=== PATIENT | male | born 1985 ===

== ENCOUNTER 2023-05-01 08:52 | Outpatient (CLI) | payer BC, SELFPAY | END 2023-05-01 08:53 | disposition home or self-care (01) | PROVIDERS: Visit Provider Family Medicine | DX: Z00.00 Encounter for general adult medical examination without abnormal findings (principal); Z13.6 Encounter for screening for cardiovascular disorders; Z13.1 Encounter for screening for diabetes mellitus; R35.1 Nocturia | CPT/HCPCS: 80061; 82947; G0103 ==

== ENCOUNTER 2023-05-24 08:35 | Day surgery (SDC) | payer BC, SELFPAY ==
[2023-05-24] VITALS (11 sets, daily range): BP systolic 113–156; BP diastolic 79–94; PULSE 61–80; RESP 12–16; TEMP 36–36.8; O2SAT 93–99; BMI 26.9
--- OUTSIDE RECORDS SUMMARY | 2023-05-24 08:36 | XMS_ITS | Clinical Summary ---
Author Name Unknown Organization [facility] Address [place], [place] [address] Care Team Providers Care Washery Boss Name Role Phone Pcp, No Primary Care Provider Unavailabl e Pcp, No Unavailable Unavailable Allergies No known active allergies Medications No known medications Active Problems No known active problems Immunizations Name Administration Dates Next Due AMB Influenza, IIV4 PF (=>6 mos Flulaval,Fluzone Fluarix)(Flu Clinic Only) 03/04/2020,02/20/2018,03/13/2017 COVID-19 vaccine ([employer] 30mcg/0.3mL) PF, MDV 08/06/2020,07/16/2020 Influenza Virus, Unspecified 01/28/2013 Influenza, IIV3 (Age >=3 years) 01/29/20 18,03/13/2017,01/28/2015,2013 Influenza, IIV4 02/20/2023, 2,02/14/2021,2018,02/26/2015 TD, UNSPECIFIED 04/30/2003,11/28/2002 Tdap 04/30/2012 Family History Medical History Relation Name Comments Seizures Brother 1 half brother Diabetes Brother 2 half brother Diabetes Father Hyperlipidemia Father Hypertension Father Diabetes Half-Brother Diabetes Paternal Grandfather Relation Name Status Comments Brother 1 Alive Brother 2 Alive Father Alive Half-Brother Alive Mother Alive Paternal Grandfather Social History Tobacco Use Types Packs/Day Years Used Date Smoking Tobacco: Former Cigarettes 15 1 05/29/2000 - 03/29/2016 Smokeless Tobacco: Never Tobacco Cessation:Counseling Given: Yes Alcohol Use Standard Drinks/Week Comments Yes 0 (1 standard drink = 0.6 oz pur e alcohol) 1-2 daily, beer Social Connections Answer Date Recorded Frequency of Communication with Friends and Fami ly Not on file 04/30/2021 Financial Resource Strain Answer Date R ecorded Difficulty of Paying Living Expenses Not on file 04/30/2021 Difficulty of Paying Living Expenses Not on file 04/30/2021 Sex and Gender Information Value Date Recorded Sex Assigned at Not on file Gender Identity Not on file Sexual Orientation Not on file Obstetrics History Last Filed Vital Signs Vital Sign Reading Time Taken Comments Blood Pressure 126/74 03/29/2021 10:13 AM [employer] Pulse 70 03/29/2021 10:13 AM [employer] Temperature 36.7 ??C (98.1 ??F) 03/29/2021 10:[address] Respiratory Rate 18 03/29/2021 10:13 AM [employer] Oxygen Saturation 100% 03/29/2021 10:13 AM E[employer] Inhaled Oxygen Concentration - - Weight 72.6 kg (160 lb) 03/29/2021 10:13 AM [employer] Height 172.7 cm (5' 8) 03/29/2021 10:13 AM [employer] Body Mass Index 24.33 03/29/2021 10:13 AM [employer] Plan of Treatment Health Maintenance Due Date Last Done Comments Depression screening for age 12+ 1996 HIV for age 15-65 12/21/1999 Hepatitis C screening for age 18-79 2002 BMI (ht and wt on same day) for age 18+ 03/29/2022 03/29/2021, 04/19/2019 Tetanus booster 04/30/2022 04/30/2012, 04/2003, 11/28/2002 COVID-19 vaccine series ( season) 2022 06/07/2021, 08/06/2020, 07/16/2020 Lipids for age 35-44 03/29/2026 03/29/2021 Tdap Completed 04/30/2012 Influenza for age 9-49 Completed 3, 01/30/2022, 02/14/2021, Additional history exists Pneumococcal series for age 6-64 Aged Out No longer eligible based on patient's age to complete this topic Care Teams Washery Boss Relationship Specialty Start Date End Date Pcp, No . PCP - General 02/26/17 Pcp, No . 02/26/17
--- OUTSIDE RECORDS SUMMARY | 2023-05-24 08:36 | XMS_ITS | Continuity of Care Document ---
Author Name [facility] Organization [facility] Care Team Providers Care Neuropsychologist Name Role Phone [facility] Unavailable Unavailable Problems Combined list of problems from Department of Defense and Veterans Affairs facilities. It does not include entries that were removed or entered in error. Problem Status Onset Date Problem Type Date of Resolution Comments Source Chronic low back pain Active 016 Condition Ambulatory Pharmacy Asthma (SNOMED CT 541269334)2 Active 014 Condition 03/04/2010 - WILLIE ELIAS
ex ercise induced

11/29 - MONCHO GÓMEZ RET S
exercise -induced [place] [facility] Bursitis of knee (SNOMED CT 024221696) Active 014 Condition Ambulatory Pharmacy Bursitis3 Active 010 Condition 03/04/2010 - WILLIE ELIAS
kn Ambulatory Pharmacy Low Back Pain5 Active 010 Condition 03/04/2010 - WILLIE ELIAS
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
[place] Ambulatory Pharmacy Skin Disorder Nos4 Active 009 Condition 06/09/2008 - MONCHO GÓMEZ RET S
skin lesions in R pubic area Ambulatory Pharmacy Memory loss (ICD-9-CM 780.93)1 Active 008 Condition 12/18/2007 - MONCHO GÓMEZ RET S
[place] Ambulatory Pharmacy Pain in limb (ICD-9-CM 729.5)6 Active 008 Condition 12/18/2007 - MONCHO GÓMEZ RET S
bilatera l knee bursitis [place] Ambulatory Pharmacy Foreign Body Accidentally Entering [facility] (ICD-9-CM E914.) Active 008 Condition Ambulatory Pharmacy Refractive Errors (ICD-9-CM 367.9) Active 007 Condition Ambulatory Pharmacy Personal History of Tobacco Use (ICD-9-CM V15.82) Active 007 Condition Ambulatory Pharmacy Asthma Active Condition Mar 04 10 Entered By: WILLIE ELIAS Comment: exercise induced [facility] Asthma (SNOMED CT 009316165) Active Condition [facility] Asthma * (ICD-9-CM 493.90) Active Condition Dec 18, 2007 Entered By: MONCHO GÓMEZ RET Comment: exercise-induc ed [facility] Bursitis Active Condition Mar 04 10 Entered By: WILLIE ELIAS Comment: knee [facility] Bursitis of knee (SNOMED CT 579208567) Active Condition [facility] Chronic low back pain Active Condition [facility] Dry Eye Syndromes Active Condition [facility] Foreign Body Accidentally Entering [facility] (ICD-9-CM E914.) Active Condition [facility] 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) Active Condition Dec 18, 2007 Entered By: MONCHO GÓMEZ RET Comment: [facility] Low Back Pain Active Condition Feb Entered By: WILLIE ELIAS Comment: since [facility] Low Back Pain * (ICD-9-CM 724.2) Active Condition [facility] Memory loss (ICD-9-CM 780.93) Active Condition Dec 17 08 Entered By: MONCHO GÓMEZ RET Comment: intermittent [facility] Other and unspecified alcohol dependence, continuous drinking behavior (ICD-9-CM Active Condition [facility] Pain in limb (ICD-9-CM 729.5) Active Condition Dec 17 8 Entered By: MONCHO GÓMEZ RET Comment: bilateral knee bursitis [facility] Personal History of Tobacco Use (ICD-9-CM V15.82) Active Condition [facility] Refractive Errors (ICD-9-CM 367.9) Active Condition [facility] Skin Disorder Nos Active Condition 2008 Entered By: MONCHO GÓMEZ RET Comment: skin lesions in R pubic area [facility] Sprain (ICD-9-CM 848.9) Active Condition [facility] Tinnitus Active Condition [facility] Tinnitus * (ICD-9-CM 388.30) Active Condition Dec 17 Entered By: MONCHO GÓMEZ RET Comment: intermittent [place] [facility] Tobacco Use * (ICD-9-CM 305.1) Active Condition [facility] Warts Active Condition Jun 09 Entered By: MONCHO GÓMEZ RET Comment: left fifth finger, DIP area [facility] Lyme disease Inactive Condition 05/18/2020 [facility] Seborrheic keratosis of scalp Inactive Condition 12/04/2017 Dec 04, 018 Entered By: DIXON BRIAN Comment: s/p biopsy 02/2017 [facility] Tobacco User (SCT [id number]) Inactive Condition 06/14/2021 Jan 07, 2019 Entered By: DIXON BRIAN Comment: Smokes 1 pack cigarettes per month [facility] refractive error Active Condition [facility] new patient ophthalmological exam Inactive Condition [facility] visit for: ears / hearing exam Active Condition [facility] Medications Combined list of outpatient medications from Department of Defense and Veterans Affairs facilities.Medications provided include 1) outpatient medications from the last 15 months, and 2) patient-reported medications. Medication Details Route Status Patient Instructions Prescription Expires Prescription Number Last Dispense Date Ordering Provider Order Date Source ACETAMINOPH EN 500MG TAB TAKE ONE TABLET BY MOUTH Q6H PRN ORALLY ACTIVE [facility]AX [facility] Allergies, Adverse Reactions, Alerts Combined list of allergies from Department of Defense and Veterans Affairs facilities. It does not include entries that were removed or entered in error. Substance Category Reaction Severity Reaction type Status Date Reported Comments Source No Known Allergies Drug allergy (disorder) active 09/26/2010 [facility] Immunizations Combined list of available immunizations from the Department of Defense and Veterans Affairs facilities. Immunization Series Date Given Administered By Site Reaction Lot Number CVX Code Drug Front Desk Admin Status Comments Source COVID-19 (PFIZER), MRNA, LNP-S, PF, 30 MCG/0.3 ML DOSE 3 2021 208 complet ed [facility] COVID Vaccine Pfizer 2021 208 complet ed COVID Vaccine Pfizer 06/07/21 Recorded Ambulat ory Pharmac y INFLUENZA, UNSPECIFIED FORMULATION 2020 88 complet ed [facility] influenza virus vaccine, unspecified 2020 88 complet ed influenza virus vaccine, unspecifi ed 02/14/21 Recorded Ambulat ory Pharmac y COVID-19 (PFIZER), MRNA, LNP-S, PF, 30 MCG/0.3 ML DOSE 2 2020 208 complet ed PFR; [id number]; 1 [facility] COVID Vaccine Pfizer 2020 208 complet ed Result Comment: PFR; [id number]; 1 Ambulat ory Pharmac y COVID-19 (PFIZER), MRNA, LNP-S, PF, 30 MCG/0.3 ML DOSE 1 2020 208 complet ed PFR; [id number]; 1 [facility] COVID Vaccine Pfizer 2020 208 complet ed Result Comment: PFR; [id number]; 1 Ambulat ory Pharmac y INFLUENZA, SEASONAL, INJECTABLE 2017 141 complet ed [facility] influenza, seasonal, injectable 2017 141 complet ed influenza , seasonal, injectabl e 01/28/18 Recorded Ambulat ory Pharmac y INFLUENZA, SEASONAL, INJECTABLE 2016 141 complet ed [facility] influenza, seasonal, injectable 2016 141 complet ed influenza , seasonal, injectabl e 03/13/17 Recorded Ambulat ory Pharmac y INFLUENZA, SEASONAL, INJECTABLE 2014 141 complet ed [facility] influenza, seasonal, injectable 2014 141 complet ed influenza , seasonal, injectabl e 01/28/15 Recorded Ambulat ory Pharmac y INFLUENZA, SEASONAL, INJECTABLE 2013 141 complet ed [facility] influenza, seasonal, injectable 2013 141 complet ed influenza , seasonal, injectabl e 01/28/14 Recorded Ambulat ory Pharmac y INFLUENZA, UNSPECIFIED FORMULATION 2012 88 complet ed [facility] influenza virus vaccine, unspecified 2012 88 complet ed influenza virus vaccine, unspecifi ed 01/28/13 Recorded Ambulat ory Pharmac y TDAP 2012 115 complet ed [facility] tetanus, diphtheria, acellular pertu is 2012 115 complet ed tetanus, diphtheri a, acellular pertussis 04/30/12 Recorded Ambulat ory Pharmac y TD(ADULT) UNSPECIFIED FORMULATION 2003 139 complet ed [facility] Td(adult) unspecified formulation 2003 139 complet ed Td(adult) unspecifi ed formulati on 04/30/03 Recorded Ambulat ory Pharmac y TD(ADULT) UNSPECIFIED FORMULATION 2002 139 complet ed [facility] Td(adult) unspecified formulation 2002 139 complet ed Td(adult) unspecifi ed formulati on 11/28/02 Recorded Ambulat ory Pharmac y Results Combined list of recent chemistry, hematology and other laboratory results from Department of Defense and Veterans Affairs, ranging from 15 months to all on record, depending upon the facility. Order Name Results Value Reference Range Date Interpretation Specimen Comments Source LIPID PANEL,NON -FASTING CHOLESTEROL [MASS/VOLUM E] IN SERUM OR PLASMA 216 <199 - 199 06/14 H Specimen Type: PLASMA No comment entered. Ordering Provider: ROYAL HEREDIA Report Released Date/Time: May 18, 2020 09:07 AM Reporting Lab: [facility] [phone] Performing Lab: [facility] [address] [place] [facility] LIPID PANEL,NON -FASTING CHOLESTEROL IN HDL [MASS/VOLUM E] IN SERUM OR PLASMA 79 40 06/14 Specimen Type: PLASMA No comment entered. Ordering Provider: ROYAL HEREDIA Report Released Date/Time: May 18, 2020 09:07 AM Reporting Lab: [facility] [address] Performing Lab: [facility] [address] [place] [facility] LIPID PANEL,NON -FASTING CHOLESTEROL IN LDL [MASS/VOLUM E] IN SERUM OR PLASMA BY CALCULATION 116 <99 - 99 06/14 H Specimen Type: PLASMA No comment entered. Ordering Provider: ROYAL HEREIDA Report Released Date/Time: May 18, 2020 09:07 AM Reporting Lab: [facility] [address] Performing Lab: [facility] [address] [place] [facility] LIPID PANEL,NON -FASTING CHOLESTEROL IN VLDL [MASS/VOLUM E] IN SERUM OR PLASMA BY CALCULATION 21 <29 - 29 06/14 Specimen Type: PLASMA No comment entered. Ordering Provider: ROYAL HEREDIA Report Released Date/Time: May 18, 2020 09:07 AM Reporting Lab: [facility] [address] Performing Lab: [facility] [address] [place] [facility] LIPID PANEL,NON -FASTING CHOLESTEROL NON HDL [MASS/VOLUM E] IN SERUM OR PLASMA 137 <129 - 129 06/14 H Specimen Type: PLASMA No comment entered. Ordering Provider: ROYAL HEREDIA Report Released Date/Time: May 18, 2020 09:07 AM Reporting Lab: [facility] [address] Performing Lab: [facility] [address] [place] [facility] LIPID PANEL,NON -FASTING TRIGLYCERID E [MASS/VOLUM E] IN SERUM OR PLASMA 106 <149 - 149 06/14 Specimen Type: PLASMA No comment entered. Ordering Provider: ROYAL HEREDIA Report Released Date/Time: May 18, 2020 09:07 AM Reporting Lab: [facility] [address] Performing Lab: [facility] [address] [place] [facility] BASIC METABOLIC PANEL+MG CREATININE [MASS/VOLUM E] IN SERUM OR PLASMA 0.9 0.7 - 1.2 06/14 Specimen Type: PLASMA No comment entered. Ordering Provider: ROYAL HEREDIA Report Released Date/Time: May 18, 2020 09:07 AM Reporting Lab: [facility] [address] Performing Lab: [facility] [address] [place] [facility] BASIC METABOLIC PANEL+MG UREA NITROGEN [MASS/VOLUM E] IN SERUM OR PLASMA 9 8 - 26 06/14 Specimen Type: PLASMA No comment entered. Ordering Provider: ROYAL HERDEIA Report Released Date/Time: May 18, 2020 09:07 AM Reporting Lab: [facility] [address] Performing Lab: [facility] [address] [place] [facility] BASIC METABOLIC PANEL+MG GLUCOSE [MASS/VOLUM E] IN SERUM OR PLASMA 85 74 - 100 06/14 Specimen Type: PLASMA No comment entered. Ordering Provider: ROYAL HEREDIA Report Released Date/Time: May 18, 2020 09:07 AM Reporting Lab: [facility] [address] Performing Lab: [facility] [address] [place] [facility] BASIC METABOLIC PANEL+MG SODIUM [MOLES/VOLU ME] IN SERUM OR PLASMA 141 136 - 145 06/14 Specimen Type: PLASMA No comment entered. Ordering Provider: ROYAL HEREDIA Report Released Date/Time: May 18, 2020 09:07 AM Reporting Lab: [facility] [address] Performing Lab: [facility] [address] [place] [facility] BASIC METABOLIC PANEL+MG POTASSIUM [MOLES/VOLU ME] IN SERUM OR PLASMA 3.6 3.5 - 5.1 06/14 Specimen Type: PLASMA No comment entered. Ordering Provider: ROYAL HEREDIA Report Released Date/Time: May 18, 2020 09:07 AM Reporting Lab: [facility] [address] Performing Lab: [facility] [address] [place] [facility] BASIC METABOLIC PANEL+MG CHLORIDE [MOLES/VOLU ME] IN SERUM OR PLASMA 107 98 - 107 06/14 Specimen Type: PLASMA No comment entered. Ordering Provider: ROYAL HEREDIA Report Released Date/Time: May 18, 2020 09:07 AM Reporting Lab: [facility] [phone] Performing Lab: [facility] [address] [place] [facility] BASIC METABOLIC PANEL+MG CARBON DIOXIDE, TOTAL [MOLES/VOLU ME] IN SERUM OR PLASMA 27 - 29 06/14 Specimen Type: PLASMA No comment entered. Ordering Provider: ROYAL HEREDIA Report Released Date/Time: May 18, 2020 09:07 AM Reporting Lab: [facility] [address] Performing Lab: [facility] [address] [place] [facility] BASIC METABOLIC PANEL+MG CALCIUM [MASS/VOLUM E] IN SERUM OR PLASMA 9.8 8.4 - 10.2 06/14 Specimen Type: PLASMA No comment entered. Ordering Provider: ROYAL HEREDIA Report Released Date/Time: May 18, 2020 09:07 AM Reporting Lab: [facility] [phone] Performing Lab: [facility] [address] [place] [facility] BASIC METABOLIC PANEL+MG MAGNESIUM [MASS/VOLUM E] IN SERUM OR PLASMA 2.0 1.6 - 2.6 06/14 Specimen Type: PLASMA No comment entered. Ordering Provider: ROYAL HEREDIA Report Released Date/Time: May 18, 2020 09:07 AM Reporting Lab: [facility] [address] Performing Lab: [facility] [address] [place] [facility] BASIC METABOLIC PANEL+MG ANION GAP IN SERUM OR PLASMA 7 5 - 15 06/14 Specimen Type: PLASMA No comment entered. Ordering Provider: ROYAL HEREDIA Report Released Date/Time: May 18, 2020 09:07 AM Reporting Lab: [facility] [address] Performing Lab: [facility] [address] [place] [facility] BASIC METABOLIC PANEL+MG GLOMERULAR FILTRATION RATE/1.73 SQ M.PREDICTED [VOLUME RATE/AREA] IN SERUM, PLASMA OR BLOOD BY CREATININE- BASED FORMULA (CKD-EPI) 95 60 06/14 Specimen Type: PLASMA No comment entered. Ordering Provider: ROYAL HEREDIA Report Released Date/Time: May 18, 2020 09:07 AM Reporting Lab: [facility] [address] Performing Lab: [facility] [address] [facility] Vital Signs Combined list of inpatient and outpatient Vital Signs from Department of Defense and Veterans Affairs, ranging from 12 months to all on record, depending upon the facility. Vital Sign Value Date Comments Source Systolic Blood Pressure 129mm[Hg] 06/14/2021 19:26:58 Ambulatory Pharmacy Diastolic Blood Pressure 76mm[Hg] 06/14/2021 19:26:58 Ambulatory Pharmacy Systolic Blood Pressure 126mm[Hg] 12/04/2017 13:56:04 Ambulatory Pharmacy Diastolic Blood Pressure 78mm[Hg] 12/04/2017 13:56:04 Ambulatory Pharmacy Systolic Blood Pressure 124mm[Hg] 04/19/2017 20:14:01 Ambulatory Pharmacy Diastolic Blood Pressure 74mm[Hg] 04/19/2017 20:14:01 Ambulatory Pharmacy Systolic Blood Pressure 137mm[Hg] 03/13/2017 14:51:21 Ambulatory Pharmacy Diastolic Blood Pressure 71mm[Hg] 03/13/2017 14:51:21 Ambulatory Pharmacy Systolic Blood Pressure 124mm[Hg] 10/11/2014 20:01:03 Ambulatory Pharmacy Diastolic Blood Pressure 79mm[Hg] 10/11/2014 20:01:03 Ambulatory Pharmacy Systolic Blood Pressure 138mm[Hg] 06/01/2015 17:04:00 Ambulatory Pharmacy Diastolic Blood Pressure 84mm[Hg] 06/01/2015 17:04:00 Ambulatory Pharmacy Systolic Blood Pressure 127mm[Hg] 05/22/2018 20:46:44 Ambulatory Pharmacy Diastolic Blood Pressure 84mm[Hg] 05/22/2018 20:46:44 Ambulatory Pharmacy Systolic Blood Pressure 124mm[Hg] 10/11/2014 20:01:53 Ambulatory Pharmacy Diastolic Blood Pressure 69mm[Hg] 10/11/2014 20:01:53 Ambulatory Pharmacy Systolic Blood Pressure 119mm[Hg] 10/10/2016 15:17:25 Ambulatory Pharmacy Diastolic Blood Pressure 72mm[Hg] 10/10/2016 15:17:25 Ambulatory Pharmacy Systolic Blood Pressure 113mm[Hg] 01/07/2019 13:22:21 Ambulatory Pharmacy Diastolic Blood Pressure 74mm[Hg] 01/07/2019 13:22:21 Ambulatory Pharmacy Encounters Combined list of: 1) Encounters from Department of Veterans Affairs facilities [facility]. 2) Encounters from the Department of [facility] facilities going back up to 280 months. Location Location Details Encounter Type Encounter Number Reason For Visit Attending Provider ADM Date DC Date Status Disposition Source [facility] [place](Au diology Cln) OUTPATIENT [id number] DEVEN BENOIT 07/31 Released w/o Limitations [facility] [place]( Audiolo gy Cln) [facility] [place](Op tometry Cln) OUTPATIENT [id number] routine eye exam JOANNE JOHNSON 08/02 Released w/o Limitations [facility] [place]( Optomet ry Cln) [facility] Outpatient Encounter [id number] 03/14 [facility] Procedures Combined list of: 1) Procedures from Department of Veterans Affairs facilities going back up to thelast 18 months, not all [place] non-surgical procedures are included; 2) All procedures from the Department of [facility] facilities. Procedure Procedure Type Code Date Perfomer Comments Sourc e No data available for this section Ambulato ry Pharmacy INJECTION, PENICILLIN G BENZATHINE AND PENICILLIN G PROCAINE, UP TO 1,200,000 UNITS DoD BUPRENORPHINE IMPLANT, 74.2 MG DoD FITTING OF SPECTACLES, EXCEPT FOR APHAKIA; MONOFOCAL DoD ELECTROCARDIOGRAM, ROUTINE ECG WITH AT LEAST 12 LEADS; TRACING ONLY, WITHOUT INTERPRETATION AND REPORT DoD NONINVASIVE EAR OR PULSE OXIMETRY FOR OXYGEN SATURATION; SINGLE DETERMINATION DoD THERAPEUTIC PROCEDURE, 1 OR MORE AREAS, EACH 15 MINUTES; THERAPEUTIC EXERCISES TO DEVELOP STRENGTH AND ENDURANCE, RANGE OF MOTION AND FLEXIBILITY DoD THERAPEUTIC PROCEDURE, 1 OR MORE AREAS, EACH 15 MINUTES; THERAPEUTIC EXERCISES TO DEVELOP STRENGTH AND ENDURANCE, RANGE OF MOTION AND FLEXIBILITY DoD THERAPEUTIC PROCEDURE, 1 OR MORE AREAS, EACH 15 MINUTES; THERAPEUTIC EXERCISES TO DEVELOP STRENGTH AND ENDURANCE, RANGE OF MOTION AND FLEXIBILITY DoD INFUSION, NORMAL SALINE SOLUTION , 1000 CC DoD PURE TONE AUDIOMETRY (THRESHOLD); AIR ONLY DoD [employer] [facility] Fitting Monofocal Except For Aphakia [facility] Services Fitting Monofocal Except For Aphakia [id number] JOANNE JOHNSON [facility] Determination Of Refractive State Determination Of Refractive State [id number] JOANNE JOHNSON [facility] Ophthalmological New Patient Start Comprehensive Care Ophthalmological New Patient Start Comprehensive Care [id number] JOANNE JOHNSON [facility] Social History Combined list of available smoking, tobacco, and other social history from Department of Defense and Veterans Affairs facilities. Social History Type Response Date Comment Source Tobacco smoking status [facility]-TOBACCO QUIT < 1 YEAR 06/14/2021 [facility] History of tobacco use [place]-TO[place]AC[place] FORMER USER 06/14/2021 [facility] History of tobacco use [place]-TOBACCO USE TEACHING FELLOW NO 11/19/2018 [facility] History of tobacco use FORMER TOBACCO USE >1Y <7Y 11/08/2017 [facility] History of tobacco use FORMER TOBACCO USE >1Y <7Y 10/10/2016 [facility] History of tobacco use CURRENT TOBACCO USER 06/01/2015 [facility] History of tobacco use FORMER TOBACCO USE >1Y <7Y 05/29/2014 [facility] History of tobacco use FORMER TOBACCO USE >1Y <7Y 07/22/2013 [facility] History of tobacco use TOBACCO SCREEN COMPLETED 07/05/2012 [facility] History of tobacco use TOBACCO SCREEN COMPLETED 03/29/2011 No, not willing to quit now [facility] History of tobacco use TOBACCO SCREEN COMPLETED 03/04/2010 [facility] History of tobacco use TOBACCO SCREEN COMPLETED 02/03/2009 1 pkg daily for 5 years, quit 2 months ago [facility] History of tobacco use CURRENT TOBACCO USER 12/18/2007 [facility] History of tobacco use CURRENT TOBACCO USER 12/18/2007 [facility] History of tobacco use CURRENT TOBACCO USER 01/25/2007 [facility] This section is an empty social history section. DoD Assessment and Plan Combined list of future care activities from Department of Defense and Veterans Affairs facilities (e.g., assessment and plan notes, appointments, orders, and referrals). Additional future care activities may be listed in the Plan of Care section. Result Assessment and Plan Date Source Assessment and Plan No data available for this section 05/24/2023 Ambulatory Pharmacy Functional Status Combined list of recent functional and cognitive assessments recorded at Department of Defense and Veterans Affairs (VA).[facility] Functional [place] Measurement (FIM) Scale: 1 = Total Assistance (Subject = 0% +), 2 = Maximal Assistance (Subject = 25% +), 3 = Moderate Assistance (Subject = 50% +), 4 = Minimal Assistance (Subject = 75% +), 5 = Supervision, 6 = Modified [place] (Device), 7 = Complete [place] (Timely, Safely). Assessment Date/Time Source Assessment Type Assessment Skill Assessment Score Assessment Details No data available for this section
[2023-05-24] MEDS: LACTATED RINGERS 1000 ML 1,000 ML 100 ML IV (09:20)
--- NOTE | 2023-05-24 10:21 | P.GSOP_ITS ---
Operative Note Date of procedure: 05/24/23 Pre-op diagnosis: Bilateral inguinal hernias Post-op diagnosis: Same Type of Procedure: Laparoscopic bilateral inguinal hernia repair with mesh - preperitoneal converted to transabdominal approach Indications: The patient is a 37-year-old male who has bilateral inguinal hernias. He is having increased discomfort on the left in particular with activity as well as coughing. He was found to have a right-sided hernia on exam. After discussion of options, he elected to proceed with repair. Procedure Description: After discussing the risks and benefits of the procedure, the patient signed informed consent.? The operative site was marked and the patient was brought to the operating room and placed on the operating table in supine position.? Care was taken to pad the patient's pressure points.?? The patient was then intubated by anesthesia.?? The operative site was then prepped and draped in the usual sterile fashion.? A time-out was then performed. A curvilinear incision was made below the umbilicus. Dissection was carried down to subcutaneous tissue until the anterior rectus fascia was encountered. This was incised off the midline to the right. The rectus muscle fibers were then retracted exposing the posterior fascia. A port with a dissecting balloon was then introduced into the pre-preperitoneal space. This was inflated under direct vision. The balloon was deflated, removed, and a 10 mm working port was placed. The space was insufflated and a 10 mm 30-degree scope was then advanced into the space. Two 5 mm ports were placed in the midline under direct vision. Dissection began on the right side. Rashida's ligament and the pubic bone were exposed medially. Following this, dissection was carried out laterally. A direct defect was noted. I reduced this. Attention was then turned to the cord structures. An indirect hernia was noted here. The sac was dissected free from the cord structures using a combination of sharp and blunt dissection. There was a large cord lipoma attached to this. This was completely reduced. Once this was reduced it was noted to be devascularized. This was removed from the abdomen. Attention was then turned to the left. Rashida's ligament was similarly identified and dissection was taken laterally. There was a moderate- sized direct hernia which was reduced. There was preperitoneal fat which had herniated through the internal ring on the left. This was reduced. There was n o hernia sac, however the peritoneum was dissected off of the cord structures. At this point, the space was examined to ensure adequate dissection. However the preperitoneal space had collapsed. It was determined that this was secondary to a small tear in the peritoneum which had caused pneumoperitoneum. I was unable to really insufflate the space in order to evacuate the pneumoperitoneum through the peritoneal tear, therefore I removed the umbilical port and incised the posterior fashion peritoneum here to desufflated the abdomen. This was closed with Vicryl suture and the port placed again in the preperitoneal space. Again very quickly pneumoperitoneum collected and obscured the preperitoneal space to the point where it made it difficult to visualize for appropriate mesh placement. I ensured the patient was completely relaxed and also attempted to vent the peritoneum while continuing in the preperitoneal space. The bladder did not appear to be excessively full. However, the per itoneal space would quickly collapse before I could continue working. Therefore, I elected to complete the procedure via a transabdominal approach. I reopened the posterior fascial opening that I had made to evacuate the pneumoperitoneum and placed a port through. The abdomen was then insufflated. There was only a small tear in the right side of the peritoneum measuring less than a cm. I advanced the midline ports through the peritoneum. I did need to place 2 additionally 5 mm ports in the lateral abdomen to be able to position the mesh and close the peritoneum. I began on the right. I incised the peritoneum just superior to the area of the hernia on and opened the peritoneal flap. I was then able to visualize that the dissection was sufficient for mesh placement. A piece of large Bard 3DMax mesh was then advanced into the abdomen. This was positioned in place with a marker pointed medially. This was then secured in place with a Tacker at Rashida's ligament, anteriorly on the abdominal wall, as well as lateral, to avoid the epigastric vessels. Once this was done, the peritoneal opening was then closed V lock suture in a running fashion - this came together without tension and without rolling the inferior aspect of the mesh. Attention was then turned to the left side. Similarly, I opened the peritoneum with cautery, creating a flap. A piece of bard 3D max mesh was placed again, with the marker pointed medially, overlapping the mesh on the right slightly. I then secured the mesh with a tack at rashida's as well as superomedially and laterally. The peritoneal flap was closed with a running V-lock suture with care to ensure the mesh laid flat before closure. Once this was completed the abdomen was desufflated and the ports removed. Just prior to removal of the low midline port, it was pulled into the preperitoneal space and 10 mL of 0.5% Marcaine were instilled into the preperitoneal space through a port. The fascia from the infraumbilical port was closed with 0 Vicryl. The skin incisions were closed with absorbable subcuticular suture. Sterile dressings were then applied. The scrotum was examined to ensure that both testicles were down. Instrument sponge and needle counts were correct at the end of the case. ? The patient was then woken and transported to the recovery area in stable condition. ? The patient tolerated the procedure well. Findings: Right pantaloon hernia with a large cord lipoma Left direct inguinal hernia with a moderate cord lipoma noted. Anesthesia: GETA Surgeon: Eulalia Rapp MD Estimated blood loss (mL): 15 Condition: stable Disposition: PACU
[2023-05-24] MEDS: CEFAZOLIN 2 GM INJ IVP (10:26)
--- NOTE | 2023-05-24 10:43 | SUR.PREOP ---
Unable to preform the scheduled surgery due to confusion over anticoag therapy. Pt rescheduled for tomorrow with Dr. Gregg
--- NOTE | 2023-05-24 10:57 | W.ANESCHARGE ---
Anesthesia Charges Start Date/Time Anesthesia Start Date: 05/24/23 Anesthesia Start Time: 10:12 Stop Date/Time Anesthesia Stop Date: 05/24/23 Anesthesia Stop Time: 13:38
[2023-05-24] MEDS: BUPIVACAINE 0.25% 30 ML INJECTION (11:07)
[2023-05-24] MEDS: fentaNYL 100 MCG/2 ML inj 50 MCG IVP ×2 (13:41→13:47)
[2023-05-24] MEDS: MEPERIDINE 25 MG/ML INJ 12.5 MG IVP (13:41)
--- NOTE | 2023-05-24 14:05 | W.ANESCHARGE ---
Anesthesia Charges Start Date/Time Anesthesia Start Date: 05/24/23 Anesthesia Start Time: 10:12 Stop Date/Time Anesthesia Stop Date: 05/24/23 Anesthesia Stop Time: 13:38
[2023-05-24] MEDS: HYDROCODONE-ACETAMIN 5-325 MG 1 TAB PO (14:21)
== END 2023-05-24 15:15 | disposition home or self-care (01) ==
PROVIDERS: PCP Family Medicine; Visit Provider Surgery
PROC: (CPT 49650; principal; 2023-05-24 10:15)
DX: K40.20 Bilateral inguinal hernia, without obstruction or gangrene, not specified as recurrent (principal)
CPT/HCPCS: 49650; 00860; A9270; C1781; J0665; J0690; J1100; J1170; J2175; J2250; J2405; J2704; J2710; J3010; J7120

== ENCOUNTER 2023-11-19 12:37 | Outpatient (CLI) | payer BC, SELFPAY ==
--- OUTSIDE RECORDS SUMMARY | 2023-11-19 12:40 | XMS_ITS | Clinical Summary ---
Author Organization [facility] Address [place], [place] [address] Care Team Providers Care Microbiology Lab Manager Name Role Phone Pcp, No Primary Care Provider Unavailabl e Pcp, No Unavailable Unavailable Allergies No known active allergies Medications No known medications Active Problems No known active problems Immunizations Name Administration Dates Next Due AMB Influenza, IIV4 PF (=>6 mos Flulaval,Fluzone Fluarix)(Flu Clinic Only) 03/04/2020,02/20/2018,03/13/2017 COVID-19 vaccine (ZapHour NTKustom Codes 30mcg/0.3mL) PF, MDV 08/06/2020,07/16/2020 Influenza Virus, Unspecified [...] Years Used Date Smoking Tobacco: Former Cigarettes 1 05/29/2000 - 03/29/2016 Smokeless Tobacco: Never [...] Comments Blood Pressure 126/74 03/29/2021 10:[address] Pulse 70 03/29/2021 10:[address] Temperature 36.7 ??C (98.1 ??F) 03/29/2021 10:[address] Respiratory Rate 18 03/29/2021 10:[address] Oxygen Saturation 100% 03/29/2021 10:[address] Inhaled Oxygen Concentration - - Weight 72.6 kg (160 lb) 03/29/2021 10:[address] Height 172.7 cm (5' 8) 03/29/2021 10:[address] Body Mass Index 24.33 03/29/2021 10:[address] Plan of Treatment Health Maintenance Due Date Last Done Comments Depression screening for age 12+ 1996 HIV for age 15-65 12/21/1999 Hepatitis C screening for age 18-79 2002 BMI (ht and wt on same day) for age 18+ 03/29/2022 03/29/2021, 04/19/2019 Tetanus booster 04/30/2022 04/30/2012, 04/2003, 11/28/2002 COVID-19 vaccine series ( season) 2022 06/07/2021, 08/06/2020, 07/16/2020 Influenza for age 9-49 12/30/2023 3, 01/30/2022, 02/14/2021, Additional history exists Lipids for age 35-44 03/29/2026 03/29/2021 Tdap Completed 04/30/2012 Pneumococcal series for age 6-64 Aged Out No longer eligible based on patient's age to complete this topic Procedures Procedure Name Priority Date/Time Associated Diagnosis Comments LIPID PANEL W REFLEX MEASURED LDL Routine 03/29/2021 10:[address] Lipid screening from Last 3 Months or Most Recently Relevant to Health Maintenance Results * (ABNORMAL) LIPID PANEL W REFLEX MEASURED LDL (03/29/2021 10:[address]) CHOLESTEROL,TOTAL 273(H) 100 - 199 mg/dL 03/29/2021 6:[address] [facility] [employer] [facility] TRIGLYCERIDES 52 <150 mg/dL 03/29/2021 6:[address] [facility] HDL CHOLESTEROL 103 >40 mg/dL 6:[address] [facility] NON-HDL CHOLESTEROL 170(H) <145 mg/dl 03/29/2021 6:[address] [facility] CHOL/HDL RATIO 2.65 <4.50 03/29/2021 6:[address] [facility] LDL CHOLESTEROL 160(H) <=130 mg/dL 03/29/2021 6:[address] [facility] VLDL CHOLESTEROL 10 <=30 mg/dL 03/29/2021 6:[address] [facility] PROVIDER ORDERED STATUS RANDOM 03/29/2021 6:[address] [facility] Blood BLOOD SPECIMEN / Unknown Venipuncture / Unknown 03/29/2021 10:[address] 03/29/2021 10:[address] Jose Venegas MD [facility] [address] [place] [address], [place] from Last 3 Months or Most Recently Relevant to Health Maintenance Care Teams Microbiology Lab Manager Relationship Specialty Start Date End Date Pcp, No . PCP - General 02/26/17 Pcp, No . 02/26/17
--- OUTSIDE RECORDS SUMMARY | 2023-11-19 12:40 | XMS_ITS | Continuity of Care Document ---
Author Name [facility] Organization [facility] Care Team Providers Care Molded Goods Spot Picker Name Role Phone [facility] Unavailable Unavailable Problems Combined list of problems from Department of Defense and Veterans Affairs facilities. It does not include entries that were removed or entered in error. Problem Status Onset Date Problem Type Date of Resolution Comments Source Chronic low back pain Active 016 Condition Ambulatory Pharmacy Asthma (SNOMED CT [id number])2 Active 014 Condition 03/04/2010 - WILLIE ELIAS
ex ercise induced

11/29 - MONCHO GÓMEZ RET S
exercise -induced [place] Ambulatory Pharmacy Bursitis of knee (SNOMED CT [id number]) Active 014 Condition Ambulatory Pharmacy Bursitis3 Active 010 Condition 03/04/2010 - WILLIE ELIAS
[place] Ambulatory Pharmacy Low Back Pain5 Active 010 Condition 03/04/2010 - WILLIE ELIAS
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
[place] Ambulatory Pharmacy Skin Disorder Nos4 Active 009 Condition 06/09/2008 - MONCHO GÓMEZ RET S
skin lesions in R pubic area Ambulatory Pharmacy Memory loss (ICD-9-CM 780.93)1 Active 008 Condition 12/18/2007 - [facility]MEZ [facility] S
[place] Ambulatory Pharmacy Pain in limb (ICD-9-CM 729.5)6 Active 008 Condition 12/18/2007 - MONCHO GÓMEZ RET S
bilatera l knee bursitis [place] Ambulatory Pharmacy Foreign Body Accidentally Entering [facility] [employer] (ICD-9-CM E914.) Active 008 Condition Ambulatory Pharmacy Refractive Errors (ICD-9-CM 367.9) Active 007 Condition Ambulatory Pharmacy Personal History of Tobacco Use (ICD-9-CM V15.82) Active 007 Condition Ambulatory Pharmacy Asthma Active Condition Mar 04 10 Entered By: WILLIE ELIAS Comment: exercise induced [facility] Asthma (SNOMED CT 508397929) Active Condition [facility] Asthma * (ICD-9-CM 493.90) Active Condition Dec 18, 2007 Entered By: MONCHO GÓMEZ RET Comment: exercise-induc ed [facility] Bursitis Active Condition Mar 04 10 Entered By: WILLIE ELIAS Comment: knee [facility] Bursitis of knee (SNOMED CT [id number]) Active Condition [facility] Chronic low back pain Active Condition [facility] Contact with and (Suspected) Exposure to Air Pollution Active Condition [facility] Contact with and (Suspected) Exposure to Asbestos Active Condition [facility] Contact with and (suspected) exposure to other hazardous substances Active Condition [facility] Contact with and (Suspected) Exposure to other Hazardous, Chiefly Nonmedicinal, Active Condition [facility] Contact with and (Suspected) Exposure to other Hazards in the Physical Environme Active Condition [facility] Dry Eye Syndromes Active Condition [facility] Foreign Body Accidentally Entering [facility] [employer] (ICD-9-CM E914.) Active Condition [facility] 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 Pain in limb (ICD-9-CM 729.5) Active Condition Dec 17 8 Entered By: MONCHO GÓMEZ RET Comment: bilateral knee bursitis [facility] Personal History of Tobacco Use (ICD-9-CM V15.82) Active Condition [facility] Refractive Errors (ICD-9-CM 367.9) Active Condition [facility] Skin Disorder Nos Active Condition 2008 Entered By: MONCHO GÓMEZ RET Comment: skin lesions in R pubic area [facility] Sprain (ICD-9-CM 848.9) Active Condition [facility] Tinnitus Active Condition [facility] Tinnitus * (ICD-9-CM 388.30) Active Condition Dec 17 08 Entered By: MONCHO GÓMEZ RET Comment: intermittent [facility] Tobacco Use * (ICD-9-CM 305.1) Active Condition [facility] Warts Active Condition Jun 09 09 Entered By: MONCHO GÓMEZ RET Comment: left fifth finger, DIP area [facility] Lyme disease Inactive Condition 05/18/2020 [facility] Seborrheic keratosis of scalp Inactive Condition 12/04/2017 Dec 04, 018 Entered By: DIXON BRIAN Comment: s/p biopsy 02/2017 [facility] Tobacco User (SCT [id number]) Inactive Condition 06/14/2021 Jan 07, 2019 Entered By: DIXON BRIAN Comment: Smokes 1 pack cigarettes per month [facility] refractive error Active Condition [facility] new patient ophthalmological exam Inactive Condition [facility] visit for: ears / hearing exam Active Condition [facility] Diagnosis: ICD-10-CM Z77.110 Contact with and (suspected) exposure to air pollution Active Diagnosis [facility] Medications Combined list of outpatient medications from Department of Defense and Veterans Affairs facilities.Medications provided include 1) outpatient medications from the last 15 months, and 2) patient-reported medications. Medication Details Route Status Patient Instructions Prescription Expires Prescription Number Last Dispense Date Ordering Provider Order Date Order Qty Source ACETAMINOPH EN 500MG TAB ACETAMIN OPHEN 500MG TAB Non-VA TAKE ONE TABLET BY MOUTH Q6H PRN Jul 22, 2013 Non-[facility] Document ed by: MARKIE LOMAX Document ed at: [facility] ORAL ACTIVE Vanessa LOMAX 2013 [facility] Allergies, Adverse Reactions, Alerts Combined list of allergies from Department of Defense and Veterans Affairs facilities. It does not include entries that were removed or entered in error. Substance Category Reaction Severity Reaction type Status Date Reported Comments Source No Known Allergies Drug allergy (disorder) active 09/26/2010 [facility] Immunizations Combined list of available immunizations from the Department of Defense and Veterans Affairs facilities. Immunization Series Date Given Administered By Site Reaction Lot Number CVX Code Drug Deputy Treasurer Status Comments Source PNEUMOCOCCAL POLYSACCHARID E PPV23 2023 33 complet ed [facility] TDAP 2023 115 complet ed [facility] INFLUENZA, INJECTABLE, QUADRIVALENT, PRESERVATIVE FREE 2022 150 complet ed [facility] INFLUENZA, INJECTABLE, QUADRIVALENT, PRESERVATIVE FREE 2021 150 complet ed [facility] COVID-19 (PFIZER), MRNA, LNP-S, PF, 30 MCG/0.3 ML DOSE 3 2021 208 complet ed [facility] COVID Vaccine Pfizer 2021 208 complet ed COVID Vaccine Pfizer 06/07/21 Recorded Ambulat ory Pharmac y INFLUENZA, INJECTABLE, QUADRIVALENT, PRESERVATIVE FREE 2020 150 complet ed [facility] INFLUENZA, UNSPECIFIED FORMULATION 2020 88 complet ed [facility] influenza virus vaccine, unspecified 2020 88 complet ed influenza virus vaccine, unspecifi ed 02/14/21 Recorded Ambulat ory Pharmac y COVID-19 (PFIZER), MRNA, LNP-S, PF, 30 MCG/0.3 ML DOSE 2 2020 208 complet ed PFR; [id number]; 1 [facility] COVID Vaccine Pfizer 2020 208 complet ed Result Comment: PFR; [id number]; 1 Ambulat ory Pharmac y COVID-19 (PFIZER), MRNA, LNP-S, PF, 30 MCG/0.3 ML DOSE 1 2020 208 complet ed PFR; [id number]; 1 [facility] COVID Vaccine Pfizer 2020 208 complet ed Result Comment: PFR; [id number]; 1 Ambulat ory Pharmac y INFLUENZA, INJECTABLE, QUADRIVALENT, PRESERVATIVE FREE 2019 150 complet ed [facility] INFLUENZA, INJECTABLE, QUADRIVALENT, PRESERVATIVE FREE 2018 150 complet ed [facility] INFLUENZA, INJECTABLE, QUADRIVALENT, PRESERVATIVE FREE 2017 150 complet ed [facility] INFLUENZA, SEASONAL, INJECTABLE 2017 141 complet ed [facility] influenza, seasonal, injectable 2017 141 complet ed influenza , seasonal, injectabl e 01/28/18 Recorded Ambulat ory Pharmac y INFLUENZA, INJECTABLE, QUADRIVALENT, PRESERVATIVE FREE 2016 150 complet ed [facility] INFLUENZA, SEASONAL, INJECTABLE 2016 141 complet ed [facility] [place] influenza, seasonal, injectable 2016 141 complet ed influenza , seasonal, injectabl e 03/13/17 Recorded Ambulat ory Pharmac y INFLUENZA, INJECTABLE, QUADRIVALENT, PRESERVATIVE FREE 2014 150 complet ed [facility] INFLUENZA, SEASONAL, INJECTABLE 2014 141 complet ed [facility] influenza, seasonal, injectable 2014 141 complet ed influenza , seasonal, injectabl e 01/28/15 Recorded Ambulat ory Pharmac y INFLUENZA, SEASONAL, INJECTABLE 2013 141 complet ed [facility] influenza, seasonal, injectable 2013 141 complet ed influenza , seasonal, injectabl e 01/28/14 Recorded Ambulat ory Pharmac y INFLUENZA, UNSPECIFIED FORMULATION 2012 88 complet ed [facility] influenza virus vaccine, unspecified 2012 88 complet ed influenza virus vaccine, unspecifi ed 01/28/13 Recorded Ambulat ory Pharmac y TDAP 2012 115 complet ed [facility] tetanus, diphtheria, acellular pertu is 2012 115 complet ed tetanus, diphtheri a, acellular pertussis 04/30/12 Recorded Ambulat ory Pharmac y TD(ADULT) UNSPECIFIED FORMULATION 2003 139 complet ed [facility] Td(adult) unspecified formulation 2003 139 complet ed Td(adult) unspecifi ed formulati on 04/30/03 Recorded Ambulat ory Pharmac y TD(ADULT) UNSPECIFIED FORMULATION 2002 139 complet ed [facility] Td(adult) unspecified formulation 2002 139 complet ed Td(adult) unspecifi ed formulati on 11/28/02 Recorded Ambulat ory Pharmac y Vital Signs Combined list of inpatient and outpatient Vital Signs from Department of Defense and Veterans Affairs, ranging from 12 months to all on record, depending upon the facility. Vital Sign Value Date Comments Source Encounters Combined list of: 1) Encounters from Department of Veterans Affairs facilities going back up to thelast 18 months. 2) Encounters from the Department of Payfirma facilities going back up to 280 months. Location Location Details Encounter Type Encounter Number Reason For Visit Attending Provider ADM Date DC Date Status Disposition Source [facility](Au diology Cln) OUTPATIENT [id number] DEVEN BENOIT 07/31 Released w/o Limitations [facility]( Audiolo gy Cln) [facility](Op tometry Cln) OUTPATIENT [id number] routine eye exam JOANNE JOHNSON 08/02 Released w/o Limitations [facility]( [facility] Encounter [id number] 02/20 [facility] [place] [facility] Outpatient Encounter [id number] 03/14 [place] [facility] [place] [facility] Outpatient Encounter [id number] 05/01 [place] [facility] [place] [facility] Out[place] Encounter [id number] 07/05 [place] [facility] [place] [facility] Outpatient Encounter [id number] 08/01 [facility] [place] [facility] Outpatient Encounter [id number] Diagnos is: ICD-10- CM Z77.110 Contact with and (suspec nusrat) exposur e to air polluti on
RICHIE MCKENZIE 08/02 [facility] Procedures Combined list of: 1) Procedures from Department of Veterans Affairs facilities going back up to thelast 18 months, not all [place] non-surgical procedures are included; 2) All procedures from the Department of [facility] facilities. Procedure Procedure Type Code Date Perfomer Comments Sourc e No data available for this section Ambulato ry Pharmacy FITTING OF SPECTACLES, EXCEPT FOR APHAKIA; MONOFOCAL [facility] ELECTROCARDIOGRAM, ROUTINE ECG WITH AT LEAST 12 LEADS; TRACING ONLY, WITHOUT INTERPRETATION AND REPORT [facility] NONINVASIVE EAR OR PULSE OXIMETRY FOR OXYGEN SATURATION; SINGLE DETERMINATION [facility] THERAPEUTIC PROCEDURE, 1 OR MORE AREAS, EACH 15 MINUTES; THERAPEUTIC EXERCISES TO DEVELOP STRENGTH AND ENDURANCE, RANGE OF MOTION AND FLEXIBILITY [facility] THERAPEUTIC PROCEDURE, 1 OR MORE AREAS, EACH 15 MINUTES; THERAPEUTIC EXERCISES TO DEVELOP STRENGTH AND ENDURANCE, RANGE OF MOTION AND FLEXIBILITY [facility] THERAPEUTIC PROCEDURE, 1 OR MORE AREAS, EACH 15 MINUTES; THERAPEUTIC EXERCISES TO DEVELOP STRENGTH AND ENDURANCE, RANGE OF MOTION AND FLEXIBILITY [facility] INFUSION, NORMAL SALINE SOLUTION , 1000 CC [facility] PURE TONE AUDIOMETRY (THRESHOLD); AIR ONLY [facility] Spectacles Services Fitting Monofocal Except For Aphakia [facility] Fitting Monofocal Except For Aphakia [address] [facility] Determination Of Refractive State Determination Of Refractive State [address] [facility] Ophthalmological New Patient Start Comprehensive Care Ophthalmological New Patient Start [facility] [address] [facility] Social History Combined list of available smoking, tobacco, and other social history from Department of Defense and Veterans Affairs facilities. 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 11/19/2018 [facility] History of tobacco use FORMER TOBACCO USE >1Y <7Y 11/08/2017 [facility] History of tobacco use FORMER TOBACCO USE >1Y <7Y 10/10/2016 [facility] History of tobacco use CURRENT TOBACCO USER 06/01/2015 [facility] History of tobacco use FORMER TOBACCO USE >1Y <7Y 05/29/2014 [facility] History of tobacco use FORMER TOBACCO USE >1Y <7Y 07/22/2013 [facility] History of tobacco use TOBACCO SCREEN COMPLETED 07/05/2012 [facility] History of tobacco use TOBACCO SCREEN COMPLETED 03/29/2011 No, not willing to quit now [facility] History of tobacco use TOBACCO SCREEN COMPLETED 03/04/2010 [facility] History of tobacco use TOBACCO SCREEN COMPLETED 02/03/2009 1 pkg daily for 5 years, quit 2 months ago [facility] History of tobacco use CURRENT TOBACCO USER 12/18/2007 [facility] History of tobacco use CURRENT TOBACCO USER 12/18/2007 [facility] History of tobacco use CURRENT TOBACCO USER 01/25/2007 [facility] This section is an empty social history section. DoD Assessment and Plan Combined list of future care activities from Department of Defense and Veterans Affairs facilities (e.g., assessment and plan notes, appointments, orders, and referrals). Additional future care activities may be listed in the Plan of Care section. Result Assessment and Plan Date Source Assessment and Plan No data available for this section 11/19/2023 Ambulatory Pharmacy Functional Status Combined list of recent functional and cognitive assessments recorded at Department of Defense and Veterans Affairs (VA).VA Functional [place] Measurement (FIM) Scale: 1 = Total Assistance (Subject = 0% +), 2 = Maximal Assistance (Subject = 25% +), 3 = Moderate Assistance (Subject = 50% +), 4 = Minimal Assistance (Subject = 75% +), 5 = Supervision, 6 = Modified [place] (Device), 7 = Complete [place] (Timely, Safely). Assessment Date/Time Source Assessment Type Assessment Skill Assessment Score Assessment Details No data available for this section
--- NOTE | 2023-11-19 13:00 | CRLHL7_ITS ---
For Patients: As a result of the Century Cures Act, medical imaging exams and procedure reports are released immediately into your electronic medical record. You may view this report before your referring provider. If you have questions, please contact your health care provider. Indication: CHRONIC SINUSITIS Technique: Performed without IV contrast Comparison: None available Findings: Frontal sinuses: Clear. Ethmoid sinuses: Clear. Maxillary sinuses: Mild mucosal thickening is present within the inferior right maxillary sinus. Clear left maxillary sinus. The maxillary sinus drainage pathways are patent on both sides. Sphenoid sinuses: Clear, including both sphenoethmoidal recesses. Nasal Cavity: Slight curvature of the nasal septum noted. Paradoxical turn of the right middle turbinate. No polyp. No TMJ abnormalities identified. The visualized portions of the orbits, intracranial contents and upper soft tissue neck are grossly negative. Impression: 1. Mild right maxillary sinus disease. 2. Slight curvature of the nasal septum. Please note that all CT scans at this facility use dose modulation, iterative reconstruction, and/or weight-based dosing when appropriate to reduce radiation dose to as low as reasonably achievable. Dictated by Harshad Stevenson MD @ 11/19/2023 1:49:13 PM (Electronically Signed)
== END 2023-11-19 12:38 | disposition home or self-care (01) ==
LOC: CT 12:38
PROVIDERS: PCP Family Medicine; Visit Provider Otolaryngology
DX: J32.9 Chronic sinusitis, unspecified (principal); J32.0 Chronic maxillary sinusitis; J34.2 Deviated nasal septum
CPT/HCPCS: 70486

== ENCOUNTER 2024-02-13 19:07 | Outpatient (CLI) | payer BC, SELFPAY ==
--- OUTSIDE RECORDS SUMMARY | 2024-02-13 19:12 | XMS_ITS | Encounter Summary ---
Author Name [facility] Organization [facility] [place] Address [address] [place] [address] Care Team Providers Care Artist Model Name Role Phone JOANNE DON Primary Care Provider Unavailabl e MARLO HUNT [facility] Unavailabl e Insurance Providers: All historical and current Section Date Range: From patient's date of to the date document was created. This section includes the names of all active insurance providers for the patient. Insurance Provider Type of Coverage Plan Name Start of Policy Coverage End of Policy Coverage Group Number Member ID Insurance Provider's Telephone Number Policy [place]'s Name Patient's Relationship to Policy [place] PREFERRED PROVIDER ORGANIZAT ION (PPO) FEP BASIC FAM Apr 14, 2012 [id number] JANIS MARIE TTJANINAW PATIENT [place] PREFERRED PROVIDER ORGANIZAT ION (PPO) FEP BASIC FAM Apr 14, 2012 [id number] [phone] JANIS MARIE TTCHINA PATIENT [place] FEP PRESCRIPT ION BCBS FEP Apr 14, 2012 [id number] JANIS MARIE TTJANINAW PATIENT [place] FEP RX PRESCRIPT ION FEPRX Apr 14, 2012 [id number] [phone] JANIS MARIE TTJANINAW PATIENT F FEP BCBS JAY THOMPSON PREFERRED PROVIDER ORGANIZAT ION (PPO) [id number] Apr 14, 2012 [id number] JANIS MARIE TTHEW PATIENT P FEP BCBS JAY THOMPSON PREFERRED PROVIDER ORGANIZAT ION (PPO) [id number] Apr 14, 2012 [id number] [phone] JANIS MARIE TTHEW PATIENT Selected Encounter This section includes the information on record at [place] for the Encounter. Date/Time Encounter Type Encounter Description Reason Provider Source Aug 03, 2023 08:30 AM Outpatient Encounter GENERAL INTERNAL MEDICINE ICD-10-CM Z77.110 Contact with and (suspected) exposure to air pollution NATHALIA MCKENZIE [facility] Encounter Template Text not used by [place] Assessments - Encounter Diagnoses This section includes the primary and secondary diagnoses documented for the Encounter. Date/Time Primary/Secondary Diagnosis Diagnosis Name Provider Source Aug 03, 2023 09:34 AM PRIMARY Contact with and (suspected) exposure to air pollution NATHALIA MCKENZIE [facility] Aug 03, 2023 09:34 AM SECONDARY Allergic rhinitis, unspecified NATHALIA MCKENZIE [facility] Aug 03, 2023 09:34 AM SECONDARY Contact w and expsr to oth hazard, chiefly nonmed, chemicals JONAHNATHALIA [facility] Aug 03, 2023 09:34 AM SECONDARY Contact w and expsr to oth hazards in the physcl environment NATHALIA MCKENZIE [facility] Aug 03, 2023 09:34 AM SECONDARY Contact with and (suspected) exposure to asbestos NATHALIA MCKENZIE [facility] Aug 03, 2023 09:34 AM SECONDARY Contact with and exposure to other hazardous substances NATHALIA MCKENZIE [facility] Aug 03, 2023 09:34 AM SECONDARY Heartburn NATHALIA MCKENZIE [facility] Aug 03, 2023 09:34 AM SECONDARY Nasal congestion NATHALIA MCKENZIE [facility] Aug 03, 2023 09:34 AM SECONDARY Post-traumatic stress disorder, chronic NATHALIA MCKENZIE [facility] Aug 03, 2023 09:34 AM SECONDARY Postnasal drip JONAHNATHALIA [facility] Aug 03, 2023 09:34 AM SECONDARY Unspecified asthma, uncomplicated JONAHNATHALIA [facility] Social History: Smoking Status (Most current) and Tobacco Use (All prior to encounter date) This section includes the most current, and the historical, smoking and tobacco- related health factors from the [place] facility where the Encounter took place. Current Smoking Status This section includes the most current smoking, or tobacco-related health factor, from the [place] facility where the Encounter took place. Date/Time Current Smoking Status Comment Facil ity Aug 03, 2023 08:30 AM AH-BPR SMOKING DEPLOYMENT YES [facility] Tobacco Use History This section includes a history of the smoking, or tobacco-related health factors, that were collected on or before the date of the Encounter. The data comes from the [place] facility where the Encounter took place. Date/Time Smoking Status/Tobacco Use Comment F acility Jun 14, 2021 02:00 PM VA-TOBACCO FORMER USER [facility] Jun 14, 2021 02:00 PM VA-TOBACCO QUIT < 1 YEAR [facility] Nov 19, 2018 11:58 AM VA-TOBACCO DOESNT USE WI 30 MIN WAKEUP [facility] Nov 19, 2018 11:58 AM VA-TOBACCO USE > 1 5 LESS THAN 30 YEARS [facility] Nov 19, 2018 11:58 AM VA-TOBACCO USE ADVICE [facility] Nov 19, 2018 11:58 AM VA-TOBACCO USE DIVORCE ATTORNEY NO [facility] Nov 19, 2018 11:58 AM VA-TOBACCO USE MED NO [facility] Nov 19, 2018 11:58 AM VA-TOBACCO USER SOME DAYS [facility] Nov 08, 2017 10:21 AM FORMER TOBACCO USE >1Y <7Y [facility] Oct 10, 2016 10:18 AM FORMER TOBACCO USE >1Y <7Y [facility] Jun 01, 2015 11:06 AM CURRENT TOBACCO USER [facility] May 29, 2014 02:03 PM FORMER TOBACCO USE >1Y <7Y [facility] Jul 22, 2013 05:42 PM FORMER TOBACCO USE >1Y <7Y [facility] Encounter Notes: All associated encounter notes This section contains the clinical notes associated to the Encounter. Date/Time Encounter Note(s) Provider Source Aug 03, 2023 08:19 AM LETTERS: LOCAL TITLE: FOLLOW UP RESULTS LETTER STANDARD TITLE: LETTERS DATE OF NOTE: AUG 03, 2023@08:19 ENTRY DATE: AUG 03, 2023@08:19:41 AUTHOR: NATHALIA MCKENZIE EXP COSIGNER: URGENCY: STATUS: COMPLETED [facility] [address] [place] [address] Jul RUTHIE MARIE [address] [facility] [id number] Dear : Your Airborne Hazards and Burn Pit Registry/[place] Registry exams have been completed. This will help us to better serve you and other Veterans who are concerned about health problems that may have resulted from service in [facility]. You are now included in the Registry and will get updates from [place] when there is new information. You reported significant exposures to: Smoke and fumes from open burn pits Sand, dust, and particulate matter Fuel, aircraft exhaust, and other mechanical fumes Smoke of fumes from tent heaters Passive cigarette smoke Hemlock Solvents Microwaves Local food Welding-aluminum, steel, copper, and flux fumes Asbestos You also reported: Runny nose/postnasal drip Chronic sinus congestion Hay fever or respiratory allergy Cough Sputum or phlegm production Wheezing or whistling in the chest Shortness of breath or breathlessness Decreased ability to exercise Heartburn or acid reflux Urinary problem Fertility or reproductive problems Miscarriage Muscle or joint pain Loud snoring PTSD As discussed during your visit I have ordered: No tests. You are encouraged to follow up with your primary care provider for all medical concerns. The results of your examination will be maintained in your medical record by [place] and will be available for future use as needed. Participating in the registry exam process is not the same as filing a claim for disability/compensation. If you wish to file an original disability claim related to your environmental exposures, you have a few choices: 1. File a claim online using an [employer] account at [email or web address] [email or web address] . This is the fastest way to proceed. 2. Complete and mail the VA Form [id number] (Application for Disability Compensation and Related Compensation Benefits) with a copy of your service treatment records to the following address: [facility] [address] [place] [address] 3. Contact the VA Regional Office at for assistance. 4. Contact your local [place]'s Building Serviceman (VSO) for assistance. I encourage you to view [place]'s Health Outcomes Exposures website at https://www.publichealth.va. gov/exposures/index.asp for additional information and resources on exposures related to your service. Should you have additional questions, please contact your local VA Environmental Health Coordinator at [email or web address].va. gov/exposures/coordinators.a sp. I hope this information is helpful to you. Thank you for your service to our country and for taking part in these registry exams. Sincerely, NATHALIA MCKENZIE APRN CAR SHIFTER CERTIFIED NURSE PRACTITIONER NATHALIA MCKENZIE [facility] Aug 03, 2023 08:18 AM ROCÍO LYLES VIKKI TRY C & P EXAMINATION CONSULT: LOCAL TITLE: GULF WAR REGISTRY EXAMINATION STANDARD TITLE: [facility] GULF REGISTRY C & P EXAMINATION CONSULT DATE OF NOTE: AUG 03, 2023@08:18 ENTRY DATE: AUG 03, 2023@08:19:07 AUTHOR: NATHALIA MCKENZIE EXP COSIGNER: URGENCY: STATUS: COMPLETED For details: See AHOBPR exam done on 08/03/2023. /es/ NATHALIA MCKENZIE APRN CAR SHIFTER CERTIFIED NURSE PRACTITIONER Signed: 08/03/2023 09:34 NATHALIA MCKENZIE [facility] Aug 03, 2023 08:14 AM ROCÍO LYLES VIKKI TRY E & M NOTE: LOCAL TITLE: AIRBORNE HAZARD AND OPEN BURN PIT REGISTRY ASSESSME STANDARD TITLE: [facility] REGISTRY E & M NOTE DATE OF NOTE: AUG 03, 2023@08:14 ENTRY DATE: AUG 03, 2023@08:14:53 AUTHOR: NATHALIA MCKENZIEIGNER: URGENCY: STATUS: COMPLETED MODULE 1: INTRODUCTION AND TELEHEALTH Type of exam conducted today: Combination AHOBPR exam *and* one or more of the following: [place] Registry PCP name and phone number: Katerina Don Appointment was a Telehealth CVT/VVC visit. VVC appointment information: C - Consent: The was notified of the right to decline telehealth services and the availability of other options. The consented to be seen via CVT/VVC. A - Address: Obtained or verified 's address for this appointment. Patient location during visit: Home [address], [place] [address] P - Phone Numbers: - Pre-validate address if e911 is available - If e911 service is not available, get local police, motor vehicle licence examiner or other emergency contact numbers from the . If does not know contact emergency contact numbers, you will need to use Emergency Call Relay Center at [phone]. - The [place] confirms the location is safe and private for the visit. S - Surveyed the environment and identified all participants in room. L - Locked the virtual medical room for the encounter. MODULE 2: DEPLOYMENT HISTORY AND EXPOSURES Deployment history reviewed and discussed with : He served in the [employer]. 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 He doesn't recall being sick while deployed. Deployment history reviewed in [employer] VIR[employer]. [place] Identity and Access Management System (TJ) information Details: environmental exposures Deployment-related exposures Airborne hazards and open burn pits Smoke and fumes from open burn pits. (An open burn pit is defined as an area of land that is designated by the [place] of Defense to be used for disposing solid waste by burning in the outdoor air and does not contain a commercially manufactured incinerator or other equipment specifically designed and manufactured for the burning of solid waste.) Details: Some of the towers were next to the burn pit. Sand, dust, and particulate matter. Details: During both tours. He wore googles for protection. Fuel, aircraft exhaust, and other mechanical fumes. 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 Exhaust fumes from vehicles, generators and aircraft as his shop and living area was next to the flight line. [place] exposures (Des[place] Storm/Desert Shield, OEF/OIF) Reviewed GW questionnaire with [place]. Findings: Smoke of fumes from tent heaters. Passive cigarette smoke. 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 Used solvents to take paint off before welding. 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 He had local food [place] vendor [place]. Welding-aluminum, steel, copper, and flux fumes. 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 MODULE 3: COMBINED CHIEF COMPLAINT/HPI/ROS Reported Symptoms: Runny nose/postnasal drip for more than 3 weeks. Details: Chronic sinus congestion for more than 3 weeks. Details: Hay fever or respiratory allergy. Details: In the spring and fall gets a runny nose and a cough. Treats with Benadryl. Cough for more than 3 weeks. Details: Sputum or phlegm production for more than 3 weeks. Details: Brings up mucous in the mornings. Wheezing or whistling in the chest. Details: Shortness of breath or breathlessness. Details: Diagnosed with asthma in 2006. Uses a Fluticasone inhaler BID and Albuterol PRN. Decreased ability to exercise. Details: Heartburn or acid reflux. Details: No medications needed. Urinary problem. Other Details: Frequency. Fertility or reproductive problems. Miscarriages Details: 1 Muscle or joint pain Muscle or joint pain associated with a mechanical or traumatic cause, such as osteoarthritis or meniscal tear. Details: Both knees. Occasional back and rib pain. Muscle or joint pain *not* associated with a mechanical or traumatic cause. Details: Right thigh pain-stinging on the side. Loud snoring or witnessed apnea. Details: Mental health problem. Details: PTSD, no therapy or medications. MODULE 4: ALLERGIES/MEDICATIONS/PROBLE M LIST/PAST MEDICAL HISTORY Active Outpatient Medications (including Supplies): Non-VA ACETAMINOPHEN 500MG TAB 500MG MOUTH EVERY SIX HOURS ACTIVE NEEDED NOTE: This list does not reflect any updates made to the problem list during today's appointment. Please refer to the assessment section in module 7 for additional diagnoses. [facility] Problem List is the source for the following: Active Problem List: Enthesopathy of knee Exercise Induced Bronchospasm Chronic low back pain MODULE 5: SOCIAL/EXERCISE/SUBSTANCES/F AMILY HISTORY Social history: Details: He is . He has 4 children, ages 14, 11, 10 (macrocephaly, capillary malformation), and 6. He works for the [employer] in the [employer]. Substances: Cigarettes-smoked 1 ppd X 10 years, quit 10 years ago. Did the [place] start\increase cigarette smoking during deployment? Yes MODULE 6: PHYSICAL EXAM Pertinent medical records reviewed. Specimen Collection Date: Jun 14, 2021@13:06 Test name Result units Ref. range Site Code SODIUM 141 mmol/L 136 - 145 [618] POTASSIUM 3.6 mmol/L 3.5 - 5.1 [618] Eval: Serum potassium results are generally 5% higher than plasma. CHLORIDE 107 mmol/L 98 - 107 [618] CO2 27 mmol/L 22 - 29 [618] Eval: To calculate Anion Gap use (Na)-[(Cl)+CO2] ANION GAP 7 mmol/L 5 - 15 [618] GLUCOSE 85 mg/dL 74 - 100 [618] Eval: Reference Range is based on fasting specimen. Eval: Patients taking Sulfasalazine may see a negative bias on Glucose Eval: levels. UREA NITROGEN 9 mg/dL 8 - 26 [618] CREATININE 0.9 mg/dL 0.7 - 1.2 [618] ESTIMATED GFR(eGFR) >60 Ref: >=60 [618] Eval: Estimated glomerular filtration rate (eGFR) units: mL/min/1.73m^2. CALCIUM 9.8 mg/dL 8.4 - 10.2 [618] MAGNESIUM 2.0 mg/dL 1.6 - 2.6 [618] Specimen Collection Date: Oct 10, 2016@11:05 Test name Result units Ref. range Site Code WBC 9.87 K/cmm 4.0 - 11.0 [618] RBC 4.92 M/cmm 4.6 - 6.2 [618] HGB 14.7 g/dL 13.5 - 17.9 [618] HCT 42.8 % 41 - 54 [618] MCV 87.0 fL 80 - 100 [618] MCH 29.9 pg 27 - 33 [618] MCHC 34.3 g/dL 32.0 - 37.5 [618] RDW 12.6 % 11.5 - 14.5 [618] PLT 204 K/cmm 150 - 400 [618] MPV 10.4 fL 7.4 - 10.4 [618] CHEST 2 VIEWS PA & LAT Exm Date: OCT 11, 2014@13:28 Findings: Heart size normal. Lungs and pleural spaces clear. Bones unremarkable for age. Nipple markers in place. Impression: Normal chest. MODULE 7: ASSESSMENT AND PLAN EXPOSURE/S: Contact/Suspected Exposure to Air Pollution Z77.110 Add to Problem List Contact/Suspected Exposure to Asbestos Z77.090 Add to Problem List Contact/Suspected Exposure to Other Hazardous Chemicals Z77.098 Add to Problem List Contact/Suspected Exposure to Other Hazardous Substances Z77.29 Add to Problem List Contact with and (suspected) Exposure to Other Hazards in the physical environment. Z77.128 Add to Problem List HEENT: Allergic Rhinitis, Unspecified J30.9 Nasal Congestion R09.81 Postnasal Drip R09.82 RESPIRATORY: Had a PFT done within 6 months by C&P. 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 [place] was advised to contact [phone] if they have additional questions or do not receive a letter. Total time spent on visit was 40 minutes. /guerline/ NATHALIA MCKENZIE APRN CAR SHIFTER CERTIFIED NURSE PRACTITIONER Signed: 08/03/2023 09:34 Receipt Acknowledged By: 08/03/2023 10:05 /es/ JOANNE DON MD Staff Physician NATHALIA MCKENZIE [facility]
--- OUTSIDE RECORDS SUMMARY | 2024-02-13 19:12 | XMS_ITS | Continuity of Care Document ---
Author Name [facility] Organization [facility] Care Team Providers Care Shelter Supervisor Name Role Phone [facility] Unavailable Unavailable Problems Combined list of problems from Department of Defense and Veterans Affairs facilities. It does not include entries that were removed or entered in error. Problem Status Onset Date Problem Type Date of Resolution Comments Source Chronic low back pain Active 016 Condition Ambulatory Pharmacy Asthma (SNOMED CT [id number])2 Active 014 Condition 03/04/2010 - WILLIE ELIAS
ex ercise induced

11/29 - MONCHO GÓMEZ RET S
exercise -induced [place] Ambulatory Pharmacy Bursitis of knee (SNOMED CT 866382501) Active 014 Condition Ambulatory Pharmacy Bursitis3 Active 010 Condition 03/04/2010 - WILLIE ELIAS
kn Ambulatory Pharmacy Low Back Pain5 Active 010 Condition 03/04/2010 - WILLIE ELIAS
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
[place] Ambulatory Pharmacy Skin Disorder Nos4 Active 009 Condition 06/09/2008 - MONCHO GÓMEZ RET S
skin lesions in R pubic area Ambulatory Pharmacy Memory loss (ICD-9-CM 780.93)1 Active 008 Condition 12/18/2007 - [facility]ME[facility] S
[place] Ambulatory Pharmacy Pain in limb (ICD-9-CM 729.5)6 Active 008 Condition 12/18/2007 - MONCHO GÓMEZ RET S
bilatera l knee bursitis [place] Ambulatory Pharmacy Foreign Body Accidentally Entering [facility] [employer] (ICD-9-CM E914.) Active 008 Condition Ambulatory Pharmacy Refractive Errors (ICD-9-CM 367.9) Active 007 Condition Ambulatory Pharmacy Personal History of Tobacco Use (ICD-9-CM V15.82) Active 007 Condition Ambulatory Pharmacy Asthma Active Condition Mar 04 10 Entered By: WILLIE ELIAS Comment: exercise induced JUNIOR [facility] Asthma (SNOMED CT 641634383) Active Condition [facility] Asthma * (ICD-9-CM 493.90) Active Condition Dec 18, 2007 Entered By: MONCHO GÓMEZ RET Comment: exercise-induc ed [facility] Bursitis Active Condition Mar 04 10 Entered By: WILLIE ELIAS Comment: knee JUNIOR [place] [facility] Bursitis of knee (SNOMED CT 318160161) Active Condition [facility] Chronic low back pain Active Condition [facility] Contact with and (Suspected) Exposure to Air Pollution Active Condition [facility] Contact with and (Suspected) Exposure to Asbestos Active Condition [facility] Contact with and (suspected) exposure to other hazardous substances Active Condition [facility] Contact with and (Suspected) Exposure to other Hazardous, Chiefly Nonmedicinal, Active Condition [facility] Contact with and (Suspected) Exposure to other Hazards in the Physical Environme Active Condition [facility] Dry Eye Syndromes Active Condition [facility] Foreign Body Accidentally Entering [facility] (ICD-9-CM E914.) Active Condition [facility] 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 Pain in limb (ICD-9-CM 729.5) Active Condition Dec 17 8 Entered By: MONCHO GÓMEZ RET Comment: bilateral knee bursitis [facility] Personal History of Tobacco Use (ICD-9-CM V15.82) Active Condition [facility] Refractive Errors (ICD-9-CM 367.9) Active Condition [facility] Skin Disorder Nos Active Condition 2008 Entered By: MONCHO GÓMEZ RET Comment: skin lesions in R pubic area [facility] Sprain (ICD-9-CM 848.9) Active Condition [facility] Tinnitus Active Condition JUNIOR JimenezMikayla [facility] Tinnitus * (ICD-9-CM 388.30) Active Condition Dec 17 08 Entered By: MONCHO GÓMEZ RET Comment: intermittent [facility] Tobacco Use * (ICD-9-CM 305.1) Active Condition [facility] Warts Active Condition Jun 09 09 Entered By: MONCHO GÓMEZ RET Comment: left fifth finger, DIP area [facility] Lyme disease Inactive Condition 05/18/[address] [facility] Seborrheic keratosis of scalp Inactive Condition 12/04/2017 Dec 04, 018 Entered By: DIXON BRIAN Comment: s/p biopsy 02/2017 [facility] Tobacco User (SCT [id number]) Inactive Condition 06/14/2021 Jan 07, 2019 Entered By: DIXON BRIAN Comment: Smokes 1 pack cigarettes per month [facility] refractive error Active Condition [facility] new patient ophthalmological exam Inactive Condition [facility] visit for: ears / hearing exam Active Condition [facility] Diagnosis: ICD-10-CM Z77.110 Contact with and (suspected) exposure to air pollution Active Diagnosis [facility] Medications Combined list of outpatient medications from Department of Defense and Veterans Affairs facilities.Medications provided include 1) outpatient medications from the last 15 months, and 2) patient-reported medications. Medication Details Route Status Patient Instructions Prescription Expires Prescription Number Last Dispense Date Ordering Provider Order Date Order Qty Source ACETAMINOPH EN 500MG TAB TAKE ONE TABLET BY MOUTH Q6H PRN ORAL ACTIVE Vanessa LOMAX 2013 [facility] Allergies, Adverse Reactions, Alerts Combined list of allergies from Department of Defense and Veterans Affairs facilities. It does not include entries that were removed or entered in error. Substance Category Reaction Severity Reaction type Status Date Reported Comments Source No Known Allergies Drug allergy (disorder) active 09/26/2010 [facility] Immunizations Combined list of available immunizations from the Department of Defense and Veterans Affairs facilities. Immunization Series Date Given Administered By Site Reaction Lot Number CVX Code Drug Pad Extraction Tender Status Comments Source PNEUMOCOCCAL POLYSACCHARID E PPV23 2023 33 complet ed [facility] TDAP 2023 115 complet ed [facility] INFLUENZA, INJECTABLE, QUADRIVALENT, PRESERVATIVE FREE 2022 150 complet ed [facility] INFLUENZA, INJECTABLE, QUADRIVALENT, PRESERVATIVE FREE 2021 150 complet ed [facility] COVID Vaccine Pfizer 2021 208 complet ed COVID Vaccine Pfizer 06/07/21 Recorded Ambulat ory Pharmac y COVID-19 (PFIZER), MRNA, LNP-S, PF, 30 MCG/0.3 ML DOSE 3 2021 208 complet ed [facility] influenza virus vaccine, unspecified 2020 88 complet ed influenza virus vaccine, unspecifi ed 02/14/21 Recorded Ambulat ory Pharmac y INFLUENZA, INJECTABLE, QUADRIVALENT, PRESERVATIVE FREE 2020 150 complet ed [facility] INFLUENZA, UNSPECIFIED FORMULATION 2020 88 complet ed [facility] COVID-19 (PFIZER), MRNA, LNP-S, PF, 30 MCG/0.3 ML DOSE 2 2020 208 complet ed PFR; [id number]; 1 [facility] COVID Vaccine Pfizer 2020 208 complet ed Result Comment: PFR; [id number]; 1 Ambulat ory Pharmac y COVID-19 (PFIZER), MRNA, LNP-S, PF, 30 MCG/0.3 ML DOSE 1 2020 208 complet ed PFR; [id number]; 1 [facility] COVID Vaccine Pfizer 2020 208 complet ed Result Comment: PFR; [id number]; 1 Ambulat ory Pharmac y INFLUENZA, INJECTABLE, QUADRIVALENT, PRESERVATIVE FREE 2019 150 complet ed [facility] INFLUENZA, INJECTABLE, QUADRIVALENT, PRESERVATIVE FREE 2018 150 complet ed [facility] INFLUENZA, INJECTABLE, QUADRIVALENT, PRESERVATIVE FREE 2017 150 complet ed [facility] influenza, seasonal, injectable 2017 141 complet ed influenza , seasonal, injectabl e 01/28/18 Recorded Ambulat ory Pharmac y INFLUENZA, SEASONAL, INJECTABLE 2017 141 complet ed [facility] influenza, seasonal, injectable 2016 141 complet ed influenza , seasonal, injectabl e 03/13/17 Recorded Ambulat ory Pharmac y INFLUENZA, INJECTABLE, QUADRIVALENT, PRESERVATIVE FREE 2016 150 complet ed [facility] INFLUENZA, SEASONAL, INJECTABLE 2016 141 complet ed [facility] [place] INFLUENZA, INJECTABLE, QUADRIVALENT, PRESERVATIVE FREE 2014 150 complet ed [facility] influenza, seasonal, injectable 2014 141 complet ed influenza , seasonal, injectabl e 01/28/15 Recorded Ambulat ory Pharmac y INFLUENZA, SEASONAL, INJECTABLE 2014 141 complet ed [facility] influenza, seasonal, injectable 2013 141 complet ed influenza , seasonal, injectabl e 01/28/14 Recorded Ambulat ory Pharmac y INFLUENZA, SEASONAL, INJECTABLE 2013 141 complet ed [facility] influenza virus vaccine, unspecified 2012 88 complet ed influenza virus vaccine, unspecifi ed 01/28/13 Recorded Ambulat ory Pharmac y INFLUENZA, UNSPECIFIED FORMULATION 2012 88 complet ed [facility] tetanus, diphtheria, acellular pertu is 2012 115 complet ed tetanus, diphtheri a, acellular pertussis 04/30/12 Recorded Ambulat ory Pharmac y TDAP 2012 115 complet ed [facility] Td(adult) unspecified formulation 2003 139 complet ed Td(adult) unspecifi ed formulati on 04/30/03 Recorded Ambulat ory Pharmac y TD(ADULT) UNSPECIFIED FORMULATION 2003 139 complet ed [facility] Td(adult) unspecified formulation 2002 139 complet ed Td(adult) unspecifi ed formulati on 11/28/02 Recorded Ambulat ory Pharmac y TD(ADULT) UNSPECIFIED FORMULATION 2002 139 complet ed [facility] Vital Signs Combined list of inpatient and [...] Encounters Combined list of: 1) Encounters from [facility] facilities going back up to thelast 18 months. 2) Encounters from the [facility] facilities going back up to 280 months. Location Location Details Encounter Type Encounter Number Reason For Visit Attending Provider ADM Date DC Date Status Disposition Source [facility](Au diology Cln) OUTPATIENT [id number] DEVEN BENOIT 07/31 Released w/o Limitations [facility]( Audiolo gy Cln) [facility](Op tometry Cln) OUTPATIENT [id number] routine eye exam JOANNE JOHNSON 08/02 Released w/o Limitations [facility]( Optomet ry Cln) [facility] Outpatient Encounter [id number] 02/20 [facility] [place] Outpatient Encounter [id number] 03/14 [facility] [place] Outpatient Encounter [id number] 05/01 [facility] [place] [facility] Outpatient Encounter [id number] 07/05 [facility] [place] Outpatient Encounter [id number] 08/01 [facility] [place] Outpatient Encounter [id number] Diagnos is: ICD-10- CM Z77.110 Contact with and (suspec nusrat) exposur e to air polluti on
RICHIE MCKENZIE 08/02 [facility] Procedures Combined list of: 1) Procedures from [facility] facilities going back up to thelast 18 months, not all [place] non-surgical procedures are included; 2) All procedures from the [facility] facilities. Procedure Procedure Type Code Date Perfomer Comments Sourc e No data available for this section Ambulato ry Pharmacy Spectacles Services Fitting Monofocal Except For Aphakia [facility] Fitting Monofocal Except For Aphakia [id number] JOANNE JOHNSON [facility] Determination Of Refractive State Determination Of Refractive State [address] JOANNE JOHNSON KATHY [facility] Ophthalmological New Patient Start Comprehensive Care Ophthalmological New Patient Start Comprehensive Care [id number] JOANNE JOHNSON [facility] FITTING OF SPECTACLES, EXCEPT FOR APHAKIA; MONOFOCAL [facility] ELECTROCARDIOGRAM, ROUTINE ECG WITH AT LEAST 12 LEADS; TRACING ONLY, WITHOUT INTERPRETATION AND REPORT [facility] NONINVASIVE EAR OR PULSE OXIMETRY FOR OXYGEN SATURATION; SINGLE DETERMINATION [facility] THERAPEUTIC PROCEDURE, 1 OR MORE AREAS, EACH 15 MINUTES; THERAPEUTIC EXERCISES TO DEVELOP STRENGTH AND ENDURANCE, RANGE OF MOTION AND FLEXIBILITY [facility] THERAPEUTIC PROCEDURE, 1 OR MORE AREAS, EACH 15 MINUTES; THERAPEUTIC EXERCISES TO DEVELOP STRENGTH AND ENDURANCE, RANGE OF MOTION AND FLEXIBILITY [facility] THERAPEUTIC PROCEDURE, 1 OR MORE AREAS, EACH 15 MINUTES; THERAPEUTIC EXERCISES TO DEVELOP STRENGTH AND ENDURANCE, RANGE OF MOTION AND FLEXIBILITY [facility] INFUSION, NORMAL SALINE SOLUTION , 1000 CC [facility] PURE TONE AUDIOMETRY (THRESHOLD); AIR ONLY [facility] Social History Combined list of available smoking, tobacco, and other social history from Department of Defense and Veterans Affairs facilities. Social History Type Response Date Comment Sour e Tobacco smoking status [facility] AH-BPR SMOKING DEPLOYMENT YES 08/03/2023 [facility] History of tobacco use ME-TOBACCO FORMER USER 06/14/2021 [facility] Male 05/09/2021 Ambulatory Pha rmacy History of tobacco use ME-TOBACCO USE TYPE CUTTER NO 11/19/2018 [facility] History of tobacco use FORMER TOBACCO USE >1Y <7Y 11/08/2017 [facility] History of tobacco use FORMER TOBACCO USE >1Y <7Y 10/10/2016 [facility] History of tobacco use CURRENT TOBACCO USER 06/01/2015 [facility] History of tobacco use FORMER TOBACCO USE >1Y <7Y 05/29/2014 [facility] History of tobacco use FORMER TOBACCO USE >1Y <7Y 07/22/2013 [facility] History of tobacco use TOBACCO SCREEN COMPLETED 07/05/2012 [facility] History of tobacco use TOBACCO SCREEN COMPLETED 03/29/2011 No, not willing to quit now [facility] History of tobacco use TOBACCO SCREEN COMPLETED 03/04/2010 [facility] History of tobacco use TOBACCO SCREEN COMPLETED 02/03/2009 1 pkg daily for 5 years, quit 2 months ago [facility] History of tobacco use CURRENT TOBACCO USER 12/18/2007 [facility] History of tobacco use CURRENT TOBACCO USER 12/18/2007 [facility] History of tobacco use CURRENT TOBACCO USER 01/25/2007 [facility] Sexual Orientation Ambula tory Pharmacy Gender identity Ambulator y Pharmacy This section is an empty social history section. DoD Assessment and Plan Combined list of future care activities from Department of Defense and Veterans Affairs facilities (e.g., assessment and plan notes, appointments, orders, and referrals). Additional future care activities may be listed in the Plan of Care section. Result Assessment and Plan Date Source Assessment and Plan No data available for this section 02/14/2024 Ambulatory Pharmacy Functional Status Combined list of recent functional and cognitive assessments recorded at Department of Defense and [facility] Affairs ([place] Functional [place] Measurement (FIM) Scale: 1 = Total Assistance (Subject = 0% +), 2 = Maximal Assistance (Subject = 25% +), 3 = Moderate Assistance (Subject = 50% +), 4 = Minimal Assistance (Subject = 75% +), 5 = Supervision, 6 = Modified [place] (Device), 7 = Complete [place] (Timely, Safely). Assessment Date/Time Source Assessment Type Assessment Skill Assessment Score Assessment Details No data available for this section
--- OUTSIDE RECORDS SUMMARY | 2024-02-13 19:13 | XMS_ITS | Clinical Summary ---
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 Name Role Phone Pcp, No Primary Care Provider Unavailabl e Pcp, No Unavailable Unavailable Allergies No known active allergies Medications No known medications Active Problems No known active problems Immunizations Name Administration Dates Next Due AMB Influenza, IIV4 PF (=>6 mos Flulaval,Fluzone Fluarix)(Flu Clinic Only) 03/04/2020,02/20/2018,03/13/2017 COVID-19 vaccine (Film[employer] NTech 30mcg/0.3mL) PF, MDV 08/06/2020,07/16/2020 Influenza Virus, [...] Comments Blood Pressure 126/74 03/29/2021 10:13 AM [facility]BUTION C[facility] ADMINISTRATOR Pulse 70 03/29/2021 10:13 AM DISTRIBUTION CENTER ADMINISTRATOR Temperature 36.7 ??C (98.1 ??F) 03/29/2021 10:[address] Respiratory Rate 18 03/29/2021 10:13 AM DISTRIBUTION CENTER ADMINISTRATOR Oxygen Saturation 100% 03/29/2021 10:13 AM DISTRIBUTION CENTER ADMINISTRATOR Inhaled Oxygen Concentration - - Weight 72.6 kg (160 lb) 03/29/2021 10:13 AM DISTRIBUTION CENTER ADMINISTRATOR Height 172.7 cm (5' 8) 03/29/2021 10:13 AM DISTRIBUTION CENTER ADMINISTRATOR Body Mass Index 24.33 03/29/2021 10:13 AM DISTRIBUTION CENTER ADMINISTRATOR Plan of Treatment Upcoming Encounters Date Type Department Care Team (Late st Contact Info) Description 02/19/2024 8:50 AM CDT Nurse/Clinic Staff Only [address] [place] [address] Health Maintenance Due Date Last Done Comments Depression screening for age 12+ 1996 HIV for age 15-65 12/21/1999 Hepatitis C screening for age 18-79 2002 BMI (ht and wt on same day) for age 18+ 03/29/2022 03/29/2021, 04/19/2019 Tetanus booster 04/30/2022 04/30/2012, 04/2003, 11/28/2002 COVID-19 vaccine series ( season) 2023 06/07/2021, 08/06/2020, 07/16/2020 Influenza for age 9-49 12/30/2023 3, 01/30/2022, 02/14/2021, Additional history exists Lipids for age 35-44 03/29/2026 03/29/2021 Tdap Completed 04/30/2012 Pneumococcal series for age 6-64 Aged Out No longer eligible based on patient's age to complete this topic Procedures Procedure Name Priority Date/Time Associated Diagnosis Comments LIPID PANEL W REFLEX MEASURED LDL Routine 03/29/2021 10:33 AM DISTRIBUTION C[facility] ADMINISTRATOR Lipid screening from Last 3 Months or Most Recently Relevant to Health Maintenance Results * (ABNORMAL) LIPID PANEL W REFLEX MEASURED LDL (03/29/2021 10:33 AM DISTRIBUTION CENTER ADMINISTRATOR) CHOLESTEROL,TOTAL 273(H) 100 - 199 mg/dL 03/29/2021 6:23 PM DISTRIBUTION CENTER ADMINISTRATOR [facility] TRIGLYCERIDES 52 <150 mg/dL 03/29/2021 6:23 PM DISTRIBUTION CENTER ADMINISTRATOR [facility] HDL CHOLESTEROL 103 >40 mg/dL 6:23 PM DISTRIBUTION CENTER ADMINISTRATOR [facility] NON-HDL CHOLESTEROL 170(H) <145 mg/dl 03/29/2021 6:23 PM DISTRIBUTION CENTER ADMINISTRATOR [facility] CHOL/HDL RATIO 2.65 <4.50 03/29/2021 6:23 PM DISTRIBUTION CENTER ADMINISTRATOR [facility] LDL CHOLESTEROL 160(H) <=130 mg/dL 03/29/2021 6:23 PM DISTRIBUTION CENTER ADMINISTRATOR [facility] VLDL CHOLESTEROL 10 <=30 mg/dL 03/29/2021 6:23 PM DISTRIBUTION CENTER ADMINISTRATOR [facility] PROVIDER ORDERED STATUS RANDOM 03/29/2021 6:23 PM DISTRIBUTION CENTER ADMINISTRATOR [facility] Blood BLOOD SPECIMEN / Unknown Venipuncture / Unknown 03/29/2021 10:33 AM DISTRIBUTION CENTER ADMINISTRATOR 03/29/2021 10:34 AM DISTRIBUTION CENTER ADMINISTRATOR Joes Venegas MD CHEMISTRY [facility] [address] [place] [address], [place] from Last 3 Months or Most Recently Relevant to Health Maintenance Care Teams Rural Electrification Engineer Relationship Specialty Start Date End Date Pcp, No . PCP - General 02/26/17 Pcp, No . 02/26/17
--- NOTE | 2024-03-04 08:57 | W.PM.SLEEP ---
Sleep Study Details Details Interpreting Provider: Latonia Date of Sleep Study: 02/13/24 Sleep Study Details: STUDY TYPE:? Home unattended ? BMI:? 25.8 ORDERING PROVIDER:Tangela Lincoln INDICATION:? Concern about sleep apnea ? SLEEP SUMMARY:? 302 minutes monitored RESPIRATORY SUMMARY:? AHI 6.2, left lateral 6.7, prone 14.6, supine 6.6, right lateral 3 Low oxygen 84 1.6% of study oxygen less than 90% Snoring 23% PERIODIC LIMB MOVEMENTS OF SLEEP:? Not recorded CARDIAC:? Range 63-105, mean 79.1 beats per minute IMPRESSION:? This study demonstrates very mild obstructive sleep apnea worse in the prone position RECOMMENDATION: If patient is symptomatic treatment options include CPAP dental appliance and/or airway expansion surgery.
== END 2024-02-13 19:08 | disposition home or self-care (01) ==
LOC: SLEEP 19:11
PROVIDERS: PCP Family Medicine; Visit Provider Otolaryngology
DX: G47.33 Obstructive sleep apnea (adult) (pediatric) (principal)
CPT/HCPCS: 95806

== ENCOUNTER 2024-08-21 07:46 | Outpatient (CLI) | payer BC, SELFPAY | END 2024-08-21 07:47 | disposition home or self-care (01) | LOC: NFLDREF 08-24 19:19 | PROVIDERS: PCP Family Medicine; Referring Provider Family Medicine; Visit Provider Family Medicine | DX: Z13.6 Encounter for screening for cardiovascular disorders (principal); Z13.1 Encounter for screening for diabetes mellitus | CPT/HCPCS: 80061; 82947 ==